=== PATIENT | female | born 1965 | race Caucasian/White ===

== ENCOUNTER 2018-07-08 11:24 | Emergency (ER) | payer OTHER ==
--- NOTE | 2018-07-08 12:11 | ER Document Report ---
ED Extremity Problem, Upper - General Chief Complaint: Arm Injury Stated Complaint: ARM PAIN/TINGLING FINGERS Time Seen by Provider: 07/08/18 11:43 Mode of Arrival: Ambulatory Information source: Patient Notes: This is a 53-year-old female with a history of borderline diabetes, GERD who presents to the emergency room with left upper extremity pain status post fall with the outstretched hand. Patient states that she fell at work last entheses 3 days ago) while she was at work. She fell with the outstretched hand. She was seen at an urgent care and told that she has a fracture and needs follow-up. The patient was placed on diclofenac. She is unaware of what actually was fractured. She presents with worsening pain to the left shoulder, left elbow, left wrist along with tingling down the extremity. Patient denies hitting her head, headache. Patient denies neck pain. Patient denies any shortness of breath or abdominal pain. TRAVEL OUTSIDE OF THE [place] IN LAST 30 DAYS: No - HPI Patient complains to provider of: Injury Onset: Last week Recent injury: Yes Where: Work Quality of pain: Dull Severity of pain: Moderate Pain Level: 2 Context: Fall Associated symptoms: denies: Back pain, Fever, Seizure, Short of breath Exacerbated by: Movement Relieved by: Rest Similar symptoms previously: Yes Recently seen / treated by doctor: Yes - Related Data Allergies/Adverse Reactions: codeine Allergy (Verified 07/08/18 11:26) Past Medical History - General Information source: Patient - Social History Smoking Status: Never Smoker Cigarette use (# per day): No Chew tobacco use (# tins/day): No Frequency of alcohol use: None Drug Abuse: None Lives with: Family Family History: None Patient has suicidal ideation: No Patient has homicidal ideation: No - Past Medical History Cardiac Medical History: Denies: Hx Congestive Heart Failure, Hx Hypercholesterolemia Pulmonary Medical History: Reports: None Neurological Medical History: Reports: None Endocrine Medical History: Reports: Hx Diabetes Mellitus Type 2 - on metformin Renal/ Medical History: Reports: None. Denies: Hx Peritoneal Dialysis Malignancy Medical History: Reports: None GI Medical History: Reports: Hx Gastroesophageal Reflux Disease Psychiatric Medical History: Reports: None Traumatic Medical History: Reports: None Infectious Medical History: Reports: None Past Surgical History: Reports: Hx Section - x2, Hx Cholecystectomy, Hx Hysterectomy Review of Systems - Review of Systems Constitutional: denies: Chills, Fever EENT: No symptoms reported Cardiovascular: No symptoms reported Respiratory: No symptoms reported Musculoskeletal: See HPI Skin: No symptoms reported Hematologic/Lymphatic: No symptoms reported Neurological/Psychological: No symptoms reported Physical Exam - Vital signs Vitals: Temp Pulse Resp BP Pulse Ox 98.4 F 94 16 139/88 H 98 07/08/18 11:28 07/08/18 11:28 07/08/18 11:28 07/08/18 11:28 07/08/18 11:28 Notes: Physical exam: GENERAL: She is alert and oriented x3, no acute distress HEAD: Atraumatic, normocephalic. EYES: Pupils equal round and reactive to light, extraocular movements intact, sclera anicteric, conjunctiva are normal. ENT: Moist mucous membranes. NECK: Normal range of motion, supple LUNGS: Breath sounds clear to auscultation bilaterally and equal. No wheezes rales or rhonchi. HEART: Regular rate and rhythm without murmurs, rubs or gallops. EXTREMITIES: Right upper extremity: Normal range of motion, no pitting or edema. No clubbing or cyanosis. Left upper extremity: tenderness left shoulder, left elbow and left wrist. Patient does have a good radial pulse and sensation to the fingers. She is pain with range of motion so it does limit the range of motion. NEUROLOGICAL: Cranial nerves II through XII grossly intact. Normal speech, moving all extremities. PSYCH: Normal mood, normal affect. SKIN: Warm, Dry, normal turgor, no rashes or lesions noted. I examined the patient after x-rays more in detail: Left wrist: Patient has full range of motion at the left wrist without swelling. There is a good radial pulse. Fingers are nontender to palpation. Left forearm: Nontender Left elbow: Mild tenderness over the olecranon. Patient has no pain with supination she does have some pain with maximal pronation. She may have mild tenderness over the radial head. Left arm: Patient has tenderness over the soft tissues of the left arm but there is no obvious swelling. Left shoulder: Significant decreased range of motion secondary to pain. Patient does have passive range of motion (it is uncomfortable for her). There is tenderness to palpation. Course - Re-evaluation Re-evalutation: 07/08/18 14:43 I discussed the results of the x-rays with her. My concern is that she may have a rotator cuff injury or an occult fracture that is just not apparent on x- rays at this time. The plan will be for continued immobilization for the next few days, pain medicines and following up with an orthopedic surgeon. I will give her Dr. Kumar's number. - Vital Signs Vital signs: Temp Pulse Resp BP Pulse Ox 98.5 F 93 18 109/92 H 98 07/08/18 15:23 07/08/18 15:23 07/08/18 15:23 07/08/18 15:23 07/08/18 15:23 - Diagnostic Test Radiology reviewed: Image reviewed, Reports reviewed - Rays of the left shoulder , elbow and wrist show no obvious fractures. Discharge - Discharge Clinical Impression: Left shoulder injury, Status post fall Condition: Stable Disposition: HOME, SELF-CARE Additional Instructions: All the x-rays show no obvious fracture, the x-rays can miss a small fracture at times. Additionally, there is concern that you could have a rotator cuff injury (i.e. tendon tear) of the left shoulder that would not show on x-rays. I would like you to keep the shoulder immobilized for the next few days. Apply ice to the left shoulder several times a day for the next [address] Kumar's office tomorrow morning and tell them you are in the ER after a fall in the ER doctor wanted you seen in the next few days. Return to the emergency room for worsening pain, numbness or any concerns or getting worse. The pain medicine you're taking prescribed as a narcotic. There are several important things you should know about this medicine: 1. This medicine contains Tylenol: It is important that you do not take Tylenol (or acetaminophen) while on this medicine. Tylenol is metabolized by the liver and taking too much Tylenol (acetaminophen) can lay to liver damage and even liver failure. 2. Taking narcotics for too long can lead to physical and mental dependence. Take this medicine only if really needed and in the lowest quantity to achieve pain relief. 3. Do not drink alcohol while on this medicine. Alcohol interacts with narcotics and the combination can be dangerous. 4. Do not drive or operate machinery while on this medicine. 5. Narcotics do cause constipation, so drink plenty of fluids and daily stool softeners. Prescriptions: Ondansetron HCl [Zofran 4 mg Tablet] 1 - 2 tab PO Q4H PRN #10 tablet PRN Reason: Oxycodone HCl/Acetaminophen [Percocet 5-325 mg Tablet] 1 - 2 tab PO ASDIR PRN # 25 tablet PRN Reason: Forms: Return to Work Referrals: MONIKA KUMAR MD [ACTIVE STAFF] - Follow up tomorrow (This is the number of the orthopedic surgeon: Call the office tomorrow for the next available appointment. )
--- NOTE | 2018-07-08 12:53 | RADIOLOGY REPORT (SQ) ---
EXAM DESCRIPTION: SHOULDER LEFT 2 OR MORE VIEWS; WRIST LEFT 3 VIEWS; ELBOW LEFT OVER 2 VIEWS COMPLETED DATE/TIME: 07/08/2018 12:39 pm REASON FOR STUDY: left shoulder pain s/p fall; pain s/p fall COMPARISON: None. FINDINGS: Three views left wrist: Mild radial sided degenerative arthropathy. No fracture or malal ignment. Four views left elbow: Normal. Three views left shoulder: Normal. TECHNICAL DOCUMENTATION: JOB ID: [id number] Reading location - IP/workstation name: [email or web address]
--- NOTE | 2018-07-08 12:53 | RADIOLOGY REPORT (SQ) ---
EXAM DESCRIPTION: SHOULDER LEFT 2 OR MORE VIEWS; WRIST LEFT 3 VIEWS; ELBOW LEFT OVER 2 VIEWS COMPLETED DATE/TIME: 07/08/2018 12:39 pm REASON FOR STUDY: left shoulder pain s/p fall; pain s/p fall COMPARISON: None. FINDINGS: Three views left wrist: Mild radial sided degenerative arthropathy. No fracture or malal ignment. Four views left elbow: Normal. Three views left shoulder: Normal. TECHNICAL DOCUMENTATION: JOB ID: [id number] Reading location - IP/workstation name: [email or web address]
--- NOTE | 2018-07-08 12:53 | RADIOLOGY REPORT (SQ) ---
EXAM DESCRIPTION: SHOULDER LEFT 2 OR MORE VIEWS; WRIST LEFT 3 VIEWS; ELBOW LEFT OVER 2 VIEWS COMPLETED DATE/TIME: 07/08/2018 12:39 pm REASON FOR STUDY: left shoulder pain s/p fall; pain s/p fall COMPARISON: None. FINDINGS: Three views left wrist: Mild radial sided degenerative arthropathy. No fracture or malal ignment. Four views left elbow: Normal. Three views left shoulder: Normal. TECHNICAL DOCUMENTATION: JOB ID: [id number] Reading location - IP/workstation name: [email or web address]
[2018-07-08 15:33] VITALS: BP 109/92
== END 2018-07-08 15:33 | disposition home or self-care (01) ==
LOC: ER 11:24
DX: S49.92XA Unspecified injury of left shoulder and upper arm, initial encounter (principal); M25.522 Pain in left elbow; M25.532 Pain in left wrist; W19.XXXA Unspecified fall, initial encounter; Y99.0 Civilian activity done for income or pay; Z88.5 Allergy status to narcotic agent
CPT/HCPCS: 99283